=== PATIENT | male | born 1950 | race Caucasian/White ===

== ENCOUNTER 2019-12-20 22:04 | Emergency (ER) | payer OTHER ==
[~2019-12-20] VITALS: Ht 162.6 cm; Wt 66.7 kg
[2019-12-20 22:17] VITALS: Ht 162.6 cm; Wt 66.7 kg
[2019-12-21 00:18] VITALS: BP 112/72
== END 2019-12-21 00:18 | disposition home or self-care (01) ==
LOC: ED 22:04
DX: S02.5XXA Fracture of tooth (traumatic), initial encounter for closed fracture (principal); S01.511A Laceration without foreign body of lip, initial encounter; W17.89XA Other fall from one level to another, initial encounter; Y93.89 Activity, other specified; Y92.89 Other specified places as the place of occurrence of the external cause; Y99.8 Other external cause status
CPT/HCPCS: 90715; J2001